=== PATIENT | female | born 2000 | race Caucasian/White ===

== ENCOUNTER 2023-04-22 17:10 | Emergency (ER) | payer OTHER, SELFPAY ==
--- NOTE | ~2023-04-22 | CT_ITS ---
EXAMINATION: CT abd pelvis lumbar wo con DATE: 04/22/2023 17:41 INDICATION: Low back pain TECHNIQUE: Transaxial computed tomographic images of the abdomen, pelvis, and lumbar spine were obtai mikki without intravenous contrast. The dose-length product (DLP) was 710.32 mGy-cm. Automated exposure control and iterative reconstruction technique were employed. COMPARISON: None FINDINGS: ABDOMEN/PELVIS CT: Minimal dependent atelectasis is present in the lung bases. The heart size is normal. Within the limi tations of noncontrast examination, the liver, spleen, pancreas, gallbladder, and adrenal glands are normal. The kidneys are unremarkable. No pathologically enlarged abdominal or pelvic lymph nodes are identified. No free intraperitoneal gas or evidence of bowel obstruction. There is plate and screw fi xation of the pubic symphysis. The most medial of the left screws is fractured. LUMBAR SPINE CT: Bone alignment is normal. There is no fracture. The vertebral body heights and intervertebral disc sp aces are maintained. The prevertebral soft tissues are normal. Bone alignment is noted in the right s acrum. IMPRESSION: 1. No acute findings of the abdomen or pelvis, sensitivity limited by the absence of intravenous cont rast. 2. Unremarkable lumbar spine. Reviewed, dictated and finalized at location F. IMPRESSION: 1. No acute findings of the abdomen or pelvis, sensitivity limited by the absen ce of intravenous contrast. 2. Unremarkable lumbar spine.
[2023-04-22 17:06] VITALS: BP 149/89; PULSE 98; RESP 18; TEMP 37.3; O2SAT 100
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
[2023-04-22] MEDS: ACETAMINOPHEN 500 MG TABLET 1000 MG PO (17:20)
--- NOTE | 2023-04-22 17:20 | PC.NURSE ---
Pt to CT scan via w/c at this time.
[2023-04-22 18:54] VITALS: BP 124/84; PULSE 94; RESP 17; O2SAT 100
== END 2023-04-22 19:20 | disposition home or self-care (01) ==
LOC: ANHED 19:10
PROVIDERS: Emergency Provider Student in an Organized Health Care Education/Training Program
DX: S39.012A Strain of muscle, fascia and tendon of lower back, initial encounter (principal); V49.40XA Driver injured in collision with unspecified motor vehicles in traffic accident, initial encounter
CPT/HCPCS: 72131; 74176; 81025; 99284; A9270

== ENCOUNTER 2024-02-24 09:58 | Emergency (ER) | payer SELFPAY ==
[2024-02-24 10:00] VITALS: BP 150/107; PULSE 121; RESP 24; TEMP 36.7; O2SAT 98
--- NOTE | 2024-02-24 10:09 | ECG_ITS ---
Test Date: 2024-02-24 10:29:47 Measurements Intervals [place] Rate: 100 P: 56 NH: 172 QRS: 74 QRSD: 94 T: 40 QT: 335 QTc: 432 Interpretive Statements SINUS TACHYCARDIA POSSIBLE LEFT ATRIAL ENLARGEMENT [-0.1mV P WAVE IN V1/V2] No previous ECG available for comparison Electronically Signed On 02-25-2024 09:46:31 CDT by Osvaldo Lim M.D.
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
[2024-02-24 10:40] LABS: BEDSIDEPREGUCG Negative
[2024-02-24 10:44] LABS: Basophils Percent Auto 0.3 % (0.2-1.2); Eosinophils Percent Auto 0.3 % (0-4.4); Hematocrit 40.7 % (37.0-47.0); Hemoglobin 13.8 g/dL (12.0-15.0); Immature Granulocyte Absolute 0.05 K/mm3 (0.00-0.031); Immature Granulocyte Percent A 0.5 % (0-0.5); Lymphocytes Percent Auto 10.2 % (18.3-44.2); Mean Corpuscular HGB Conc 33.9 g/dl (32-36); Mean Corpuscular Hemoglobin 30.1 pg (26-34); Mean Corpuscular Volume 88.9 fl (80-100); Monocytes Absolute Auto 0.5 K/mm3 (0.1-0.6); Monocytes Percent Auto 4.6 % (2.6-8.5); Neutrophils Absolute Auto 9.1 K/mm3 (1.3-6.7); Neutrophils Percent Auto 84.1 % (45.5-73.1); Platelet Count Result 312 k/mm3 (150-375); Red Blood Count 4.58 M/mm3 (4.2-5.4); White Blood Count 10.8 K/mm3 (4.5-10.0)
[2024-02-24 10:51] LABS: Add Urine Microscopic? YES; Appearance Urine Cloudy (Clear); Bacteria Urine 1+ /hpf; Bilirubin Urine Negative (Negative); Blood Urine Trace (Negative); Color Urine Yellow (Yellow); Glucose Urine UA Negative (Negative); Ketones Urine Trace mg/dL (Negative); Leukocyte Esterase Ur Negative LEU/UL (Negative); Nitrate Urine Negative (Negative); Non Pathogenic Casts 0-2; Protein Urine 1+ mg/dL (Negative); RBC Urine 0-2 /hpf (0-2); Specific Grav Ur 1.026 (1.001-1.035); Squamous Epithelial Cell Urine Moderate /hpf (Few); Urobilinogen Urine 0.2 mg/dL (<2.0); pH Urine 5.5 (5.0-9.0)
[2024-02-24 10:56] LABS: Anion Gap 14 mmol/L (4-12); Blood Urea Nitrogen 14 mg/dL (7-17); Calcium 9.2 mg/dL (8.4-10.2); Carbon Dioxide 21 mmol/L (22-30); Chloride 102 mmol/L (98-107); Estimated CRCL calculation 124 ml/min; Estimated Glomerular Filt Rate > 60; Glucose 110 mg/dL (65-110); Potassium 4.1 mmol/L (3.4-5.0); Sodium 137 mmol/L (137-145)
[2024-02-24 11:00] LABS: Acetaminophen < 10 ug/mL (10-30); Ethanol < 10 mg/dL (<10); Salicylate < 1.0 mg/dL (2-20)
[2024-02-24 11:02] LABS: Amphetamine Screen Urine Negative (Negative); Barbiturate Screen Urine Negative (Negative); Benzodiazepines Screen Urine Negative (Negative); Cannabinoid Screen Urine Positive (Negative); Cocaine Screen Urine Negative (Negative); Methadone Screen Urine Negative (Negative); Opiate Screen Urine Negative (Negative); Phencyclidine Screen Urine Negative (Negative)
[2024-02-24 12:14] LABS: Influenza A QL RT-PCR Negative (Negative); Influenza B QL RT-PCR Negative (Negative); RSV RNA, RT-PCR Negative (Negative); SARS-CoV-2 RNA PCR Negative (Negative)
--- NOTE | 2024-02-24 12:27 | PC.NURSE ---
Patient's mother came to ED for update. patient getting aggravated stating Im not sitting her all day . Patient advised that there will be someone out to evaluate patient soon and we will know more then. Patient states well you cant hold me here. I will leave . this RN informed patient that we were here to keep her safe. Patient sitting in stretcher at this time.
--- NOTE | 2024-02-24 14:03 | PC.NURSE ---
Pt asking for RN to come to room. When primary nurse goes to room she calls her a bitch and states she doesn't want to see her again. This RN to room to see what pt needs. She states Im ready to go, I want to go This RN explained that she cant leave due to being on a psych hold. Pt became very angry and calling this RN names and threatening primary nurse. Pt states let me call the unit technician get me out of here Crisis here to evaluate pt at this time
--- NOTE | 2024-02-24 14:31 | PC.NURSE ---
Crisis states pt is good to go home on a safety contract.
[2024-02-24 14:38] VITALS: BP 146/93; PULSE 82; RESP 19; TEMP 36.6; O2SAT 99
== END 2024-02-24 15:06 | disposition home or self-care (01) ==
PROVIDERS: Physician Assistant; Emergency Provider Nurse Practitioner Family; PCP Family Medicine
DX: F31.9 Bipolar disorder, unspecified (principal); Z11.52 Encounter for screening for COVID-19; R00.0 Tachycardia, unspecified; R94.31 Abnormal electrocardiogram [ECG] [EKG]
CPT/HCPCS: 36415; 80048; 80307; 81001; 81025; 84443; 85025; 87086; 87637; 93005; 99284